=== PATIENT | male | born 1975 | race Caucasian/White ===

== ENCOUNTER → 2017-08-02 | Outpatient (CLI) | payer BC ==
[~2017-08-02] MED LIST: AMPH10CA13 PO; ASCO60LO9 PO; ATOM40CA7 PO; BENZ200C15 PO; CYCL10TA29 PO; DEXT15CA4 PO; FLAX100053 PO; FLU IM; GUAI120L3 PO; MAGN27TA6 PO; MULT-885 PO; OMEG-11 PO; PANT40TA65 PO; SERT-181 PO; ZOLP-358 PO
[2017-08-02 10:59] LABS: PLATELET COUNT, AUTOMATED 293 K/uL (150-450)
[2017-08-02 11:09] LABS: LDL CHOLESTEROL 135 mg/dl
== END ==
LOC: LAB 10:34
PROVIDERS: ATTEND Nurse Practitioner Family
DX: R11.2 Nausea with vomiting, unspecified (principal); R19.7 Diarrhea, unspecified; R10.9 Unspecified abdominal pain
CPT/HCPCS: 36415; 82040; 82150; 82247; 82310; 82374; 82435; 82465; 82565; 82947; 83690; 83718; 84075; 84132; 84155; 84295; 84443; 84450; 84460; 84478; 84520; 85025